=== PATIENT | male | born 1970 | race Caucasian/White ===

== ENCOUNTER 2017-10-21 22:31 | Emergency (ER) | payer OTHER ==
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
[2017-10-21 23:37] LABS: CHLORIDE,CL 99 mmol/L (98-107); SODIUM,NA 138 mmol/L (136-148)
[2017-10-22 08:17] VITALS: BP 146/96
== END 2017-10-22 08:05 ==
LOC: MW.ED 22:31
DX: F41.8 Other specified anxiety disorders (principal); R45.851 Suicidal ideations; K21.9 Gastro-esophageal reflux disease without esophagitis; Z79.899 Other long term (current) drug therapy
CPT/HCPCS: 36415; 80053; 80305; 81001; 82962; 83735; 84443; 85025; 93005; 99285; G0480; 99284

== ENCOUNTER 2020-04-17 22:28 | Emergency (ER) | payer OTHER ==
[2020-04-17] MEDS ORDERED: chlordiazePOXIDE 25 MG Cap PO ONE (23:16)
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
[2020-04-18 00:12] LABS: BLOOD UREA NITROGEN,BUN 11 mg/dL (7.0-18.0); CARBON DIOXIDE,CO2 28.8 mmol/L (21.0-32.0); CHLORIDE,CL 103 mmol/L (98-107); GLUCOSE RANDOM 95 mg/dL (74-106); SODIUM,NA 140 mmol/L (136-148)
[2020-04-18] MEDS ORDERED: QUEtiapine 100 MG Tab ONE (00:53)
[2020-04-18 06:48] VITALS: BP 114/72; PULSE 74
[2020-04-18] MEDS ORDERED: QUEtiapine 100 MG Tab PO SCH (21:00)
== END 2020-04-18 08:10 ==
LOC: MW.ED 22:28
DX: F32.9 Major depressive disorder, single episode, unspecified (principal); F43.10 Post-traumatic stress disorder, unspecified; F10.229 Alcohol dependence with intoxication, unspecified; G47.00 Insomnia, unspecified; Y90.7 Blood alcohol level of 200-239 mg/100 ml
CPT/HCPCS: 36415; 80053; 80305; 80307; 81003; 83735; 84443; 85025; 99284; A9270

== ENCOUNTER 2021-12-11 15:53 | Emergency (ER) | payer OTHER ==
[2021-12-11] MEDS ORDERED: Sodium Chloride 0.9% 2.5 ML Syringe FLUSH PRN (15:55)
[2021-12-11] MEDS ORDERED: Sodium Chloride 0.9% 10 ML Syringe FLUSH PRN (15:55)
[2021-12-11 17:05] LABS: BLOOD UREA NITROGEN,BUN 21 mg/dL (7.0-18.0); CARBON DIOXIDE,CO2 29.5 mmol/L (21.0-32.0); CHLORIDE,CL 103 mmol/L (98-107); GLUCOSE RANDOM 107 mg/dL (74-106); POTASSIUM,K 3.7 mmol/L (3.5-5.1); SODIUM,NA 137 mmol/L (136-148)
[2021-12-11] MEDS ORDERED: Lisinopril 10 MG Tab PO SCH (17:15)
[2021-12-11 17:50] VITALS: BP 140/90; PULSE 69
== END 2021-12-11 17:47 | disposition home or self-care (01) ==
LOC: MW.ED 15:53
DX: I10 Essential (primary) hypertension (principal); J32.0 Chronic maxillary sinusitis; F41.9 Anxiety disorder, unspecified; Z79.899 Other long term (current) drug therapy
CPT/HCPCS: 36415; 70450; 71045; 80053; 84484; 85025; 93005; 99284; A9270; J3490; 93010; 99285

== ENCOUNTER 2022-02-20 18:00 | Emergency (ER) | payer OTHER ==
[2022-02-20] MEDS ORDERED: Cyclobenzaprine 10 MG Tab PO ONE (19:22)
[2022-02-20] MEDS ORDERED: Acetaminophen 325 MG Tab PO ONE (19:22)
[2022-02-20 19:45] VITALS: BP 149/127; PULSE 87
== END 2022-02-20 19:45 | disposition home or self-care (01) ==
LOC: MW.ED 18:00
DX: S09.90XA Unspecified injury of head, initial encounter (principal); S16.1XXA Strain of muscle, fascia and tendon at neck level, initial encounter; S00.03XA Contusion of scalp, initial encounter; Z79.899 Other long term (current) drug therapy; W01.10XA Fall on same level from slipping, tripping and stumbling with subsequent striking against unspecified object, initial encounter
CPT/HCPCS: 70450; 72125; 99284; A9270

== ENCOUNTER 2022-06-05 09:40 | Emergency (ER) | payer OTHER ==
[2022-06-05] MEDS ORDERED: Aspirin 81 MG Tab.Chew PO ONE (10:09)
[2022-06-05] MEDS ORDERED: Sodium Chloride 0.9% 1,000 ML IV ONE (10:09)
[2022-06-05 10:43] LABS: CARBON DIOXIDE,CO2 30.3 mmol/L (21.0-32.0); POTASSIUM,K 4.5 mmol/L (3.5-5.1)
[2022-06-05] MEDS ORDERED: Iopamidol 755 MG/ML 500 ML Multipack Bottle IVPUSH ONE (12:01)
[2022-06-05 13:34] VITALS: BP 161/107; PULSE 66
== END 2022-06-05 13:34 | disposition home or self-care (01) ==
LOC: MW.ED 09:40
DX: R07.9 Chest pain, unspecified (principal); M54.50 Low back pain, unspecified; I10 Essential (primary) hypertension; Z79.899 Other long term (current) drug therapy
CPT/HCPCS: 36415; 71045; 71275; 80053; 83880; 84443; 84484; 85025; 85379; 99285; A9270; J7030; Q9967